=== PATIENT | male | born 1955 | race Caucasian/White ===

== ENCOUNTER 2019-07-04 08:21 | Day surgery (SDC) | payer OTHER ==
[2019-07-04 08:58] VITALS: TEMP 98.3
[2019-07-04 09:00] VITALS: BMI 44.7
[2019-07-04 12:37] VITALS: BP 138/63; PULSE 68
--- NOTE | 2019-07-06 11:03 | PATH ---
Surgical Pathology Report Patient Name: AUSTYN GILES [facility]. Rec. #: [id number] /Age/Gender: 1955 (Age: 63) / M Account: [id number] Location: U-ENDOSCOPY Taken: 07/04/2019 Received: 07/04/2019 Reported: 07/06/2019 Physicians: Roque Caal D.O. Specimen(s) Received A: PROXIMAL TRANSVERSE COLON POLYPS B: RECTAL SGMOID POLYPS Clinical History Screening Postoperative diagnosis: Colon polyps, diverticulosis Final Diagnosis A. PROXIMAL TRANSVERSE COLON, POLYPS, BIOPSY: TUBULAR ADENOMA(S). B. RECTOSIGMOID POLYPS, BIOPSY: TUBULAR ADENOMA. HYPERPLASTIC POLYP. Electronically Signed Medina Fortune M.D. Gross Description A. Received in formalin, labeled "biopsy proximal transverse colon polyps" are 2 giraldo, irregular portions of soft tissue measuring 0.3 and 0.4 cm. in greatest dimension. The specimens are submitted in toto in one cassette. B. Received in formalin, labeled "biopsy rectosigmoid polyps" are 2 giraldo, irregular portions of soft tissue averaging 0.3 cm. in greatest dimension. The specimens are submitted in toto in one cassette. 07/04/2019 saudi07/04/2019
== END 2019-07-04 10:35 | disposition home or self-care (01) ==
LOC: JASU-ENDO 08:21
PROVIDERS: ATTEND Internal Medicine Gastroenterology
PROC: 0DBN8ZX Excision of Sigmoid Colon, Via Natural or Artificial Opening Endoscopic, Diagnostic (ICD-10-PCS; 2019-07-04)
PROC: 0DBL8ZX Excision of Transverse Colon, Via Natural or Artificial Opening Endoscopic, Diagnostic (ICD-10-PCS; principal; 2019-07-04 09:45)
DX: Z12.11 Encounter for screening for malignant neoplasm of colon (principal); K57.30 Diverticulosis of large intestine without perforation or abscess without bleeding; D12.3 Benign neoplasm of transverse colon; K64.4 Residual hemorrhoidal skin tags; I10 Essential (primary) hypertension; E11.9 Type 2 diabetes mellitus without complications; G47.30 Sleep apnea, unspecified; E66.9 Obesity, unspecified; J44.9 Chronic obstructive pulmonary disease, unspecified
CPT/HCPCS: 82962; 88305-TC

== ENCOUNTER 2020-12-07 10:06 | Emergency (ER) | payer OTHER | END 2020-12-07 10:27 | disposition home or self-care (01) | LOC: JVIRT 10:06 | DX: Z20.822 Contact with and (suspected) exposure to COVID-19 (principal) | CPT/HCPCS: C9803; G2012-GT; U0003 ==

== ENCOUNTER 2021-02-03 17:50 | Emergency (ER) | payer OTHER | END 2021-02-03 18:26 | disposition home or self-care (01) | LOC: JVIRT 17:50 | DX: Z20.822 Contact with and (suspected) exposure to COVID-19 (principal) | CPT/HCPCS: C9803; G2251-GT; U0003 ==

== ENCOUNTER 2021-11-13 16:35 | Emergency (ER) | payer OTHER ==
[2021-11-13 16:42] VITALS: BP 162/80; PULSE 95; BMI 35.2
[2021-11-13 16:55] VITALS: TEMP 99
== END 2021-11-13 17:55 | disposition home or self-care (01) ==
LOC: FER 16:35
DX: M71.21 Synovial cyst of popliteal space [Baker], right knee (principal)
CPT/HCPCS: 93971-TC; 99284-25

== ENCOUNTER 2022-05-30 14:56 | Emergency (ER) | payer OTHER ==
[2022-05-30 15:14] VITALS: TEMP 98.3; BMI 35.2
[2022-05-30] MEDS ORDERED: BEBTELOVIMAB (EUA) 175 MG/2 ML VIAL IVPUSH ONE (15:40)
[2022-05-30 17:25] VITALS: BP 140/57; PULSE 62
== END 2022-05-30 17:20 | disposition home or self-care (01) ==
LOC: JER 14:56
DX: U07.1 COVID-19 (principal)
CPT/HCPCS: 99284-25; M0222; Q0222

== ENCOUNTER 2023-03-22 07:29 | Day surgery (SDC) | payer OTHER ==
[2023-03-18 13:07] VITALS: BMI 35.4
[2023-03-22] MEDS ORDERED: PROPOFOL 120 ML ONE (07:48)
[2023-03-22 09:31] VITALS: RESP 20; TEMP 97.1
[2023-03-22 09:48] VITALS: BP 104/57; PULSE 57
== END 2023-03-22 09:45 | disposition home or self-care (01) ==
LOC: FASU-ENDO 07:29
PROVIDERS: ATTEND Internal Medicine Gastroenterology
PROC: 0D5H8ZZ Destruction of Cecum, Via Natural or Artificial Opening Endoscopic (ICD-10-PCS; principal; 2023-03-22 08:46)
DX: Z12.11 Encounter for screening for malignant neoplasm of colon (principal); Z86.010 Personal history of colon polyps; K55.21 Angiodysplasia of colon with hemorrhage; K57.30 Diverticulosis of large intestine without perforation or abscess without bleeding